=== PATIENT | female | born 1975 ===

== ENCOUNTER 2022-03-22 08:04 | Outpatient (REF) | payer OTHER, SELFPAY ==
[2022-03-22 09:56] LABS: MANUAL DIFF FLAG NO
[2022-03-22 10:39] LABS: Basophils Absolute Auto 0.1 X10*3/uL (0.0-0.2); Basophils Percent Auto 1.1 % (0-2); Eosinophils Absolute Auto 0.1 X10*3/uL (0.0-0.4); Eosinophils Percent Auto 1.8 % (0-4); Hematocrit 35.5 % (37.0-47.0); Hemoglobin 11.5 g/dl (12.0-16.0); Lymphocytes Absolute Auto 1.6 X10*3/uL (1.2-4.9); Lymphocytes Percent Auto 35.7 % (20-40); Mean Corpuscular HGB Conc 32.4 g/dl (31.0-35.0); Mean Corpuscular Hemoglobin 25.1 pg (27.0-33.0); Mean Corpuscular Volume 77.3 fL (80.0-98.0); Mean Platelet Volume 10.2 fL (9.4-12.3); Monocytes Absolute Auto 0.4 X10*3/uL (0.1-1.2); Monocytes Percent Auto 9.5 % (2-11); Neutrophils Absolute Auto 2.3 x10*3/uL (2.0-8.3); Neutrophils Percent Auto 51.9 % (45-73); Platelet Count 322 X10*3/uL (160-400); Red Blood Count 4.59 X10*6/uL (4.20-5.50); White Blood Count 4.4 X10*3/uL (4.8-10.8)
[2022-03-22 11:20] LABS: Alanine Aminotransferase 16 U/L (0-31); Albumin Level 4.6 g/dL (3.5-5.0); Alkaline Phosphatase 109 U/L (39-117); Anion Gap 13 (12-20); Aspartate Amino Transferase 21 U/L (5-31); Bilirubin Total 0.3 mg/dL (0.0-1.0); Blood Urea Nitrogen 17 mg/dL (9-16); Calcium 9.9 mg/dL (8.4-10.2); Carbon Dioxide 25 mmol/L (22-29); Chloride 109 mmol/L (96-108); Estimated Glomerular Filt Rate > 60; Ferritin 58 ng/mL (10-250); Glucose Random 101 mg/dL (60-115); Iron 48 mcg/dL (30-160); Percent Iron Saturation 16 % (15-50); Potassium 4.6 mmol/L (3.3-5.1); Rheumatoid Factor < 15.0 IU/mL (<15.0); Sodium 142 mmol/L (135-145); TSH reflex Free T4 0.78 uIU/mL (0.32-4.0); Total Iron Binding Capacity 306 mcg/dL (228-428); Total Protein 8.2 g/dL (6.5-8.0); Unsaturated Iron Binding 258 ug/dL
[2022-03-25 10:50] LABS: ANA Pattern 2 Nuclear Envelope; ANA Titer 2 1:40 titer; Anti Nuclear Antibody Screen POSITIVE (NEGATIVE)
== END 2022-03-22 08:05 | disposition home or self-care (01) ==
LOC: HO.LAB 08:04
PROVIDERS: PCP Nurse Practitioner Family; Visit Provider Nurse Practitioner Family
DX: R20.2 Paresthesia of skin (principal); R53.83 Other fatigue; D64.9 Anemia, unspecified; M54.50 Low back pain, unspecified; M54.2 Cervicalgia; I10 Essential (primary) hypertension
CPT/HCPCS: 36415; 80053; 82550; 82728; 83540; 84443; 85025; 86038; 86039; 86431; 99202

== ENCOUNTER 2022-04-14 09:02 | Outpatient (REF) | payer OTHER, SELFPAY ==
--- NOTE | ~2022-04-14 | MR_ITS ---
EXAMINATION: MR CERVICAL SPINE WITHOUT CONTRAST CLINICAL INFORMATION: 46-year-old with paresthesias of skin. Possible MS. COMPARISON: None TECHNIQUE: MRI of the cervical spine was obtained using routine sequences without contrast. Contrast was not administered, and there is motion artifact on the sagittal STIR images; the study is limited in this regard. FINDINGS: Alignment: Normal. No spondylolisthesis or retrolisthesis. Craniocervical Junction/C1-C2 Articulations: Intact and aligned. Visualized Intracranial Structures: Within normal limits. Vertebral Bodies: Normal height. Disc Spaces and Endplates: Moderate disc space height loss at C5-C6. No significant spondylosis. Endplates appear intact. Bone Marrow: No significant marrow-replacing process or bone marrow edema. C2-C3: Minimal central disc protrusion noted without canal stenosis. Mild facet arthrosis on the left noted with mild left-sided foraminal stenosis. C3-C4: Small central disc protrusion noted with mild indentation of the ventral thecal sac without cord impingement or canal stenosis. Mild right and moderate left-sided facet arthropathy noted with mild uncovertebral spurring, with udik-vs-yelxliet left-sided neural foraminal stenosis. C4-C5: No disc herniation or canal stenosis. Ffdo-vj-alvjmlgl left-sided facet arthropathy noted without significant neural foraminal stenosis. C5-C6: Shallow broad-based central disc protrusion measuring 1 mm with minimal encroachment on the ventral thecal sac without cord impingement or canal stenosis. Minor facet arthropathy noted bilaterally with mild uncinate process spurring, without significant neural foraminal stenosis. C6-C7: Mild ligamentum flavum thickening noted without disc herniation or canal stenosis. Uncovertebral spurring noted on the right with mild facet spurring and mild right-sided neural foraminal stenosis. C7-T1: No disc herniation or canal stenosis. Mild facet arthropathy noted bilaterally without significant neural foraminal stenosis. T1-T2: No disc herniation or canal stenosis. Minor facet arthrosis noted bilaterally without significant neural foraminal stenosis. Spinal Cord: The cervical and visualized upper thoracic spinal cord is normal in morphology, caliber and signal intensity throughout. No spinal cord lesions are identified, and there is no evidence for syrinx or edema. Extracranial Soft Tissues: Grossly within normal limits within the limitations of the study. MR/MR cervical spine wo con IMPRESSION: 1. No spinal cord lesions are seen. There is no evidence for demyelinating disease within the limitations of a noncontrast study. 2. Discogenic degenerative changes at C5-C6. Multilevel mild central disc protrusions without cord impingement or canal stenosis, as detailed by level above. 3. Multilevel DJD, as discussed above, with seeg-wh-lxeowaob left-sided neural foraminal stenosis at C3-C4, mild left-sided neural foraminal stenosis at C2-C3 and mild right-sided neural foraminal stenosis at C6-C7.
== END 2022-04-14 09:03 | disposition home or self-care (01) ==
LOC: HO.MRI 09:02
PROVIDERS: Visit Provider Nurse Practitioner Family
DX: R20.2 Paresthesia of skin (principal); M54.2 Cervicalgia
CPT/HCPCS: 72141

== ENCOUNTER → 2022-05-31 09:52 | Outpatient (BNVA) | payer OTHER, SELFPAY | PROVIDERS: PCP Nurse Practitioner Family; Visit Provider Nurse Practitioner Family | DX: R20.2 Paresthesia of skin (principal); R76.8 Other specified abnormal immunological findings in serum; R53.83 Other fatigue | CPT/HCPCS: 99212 ==

== ENCOUNTER 2022-08-25 16:19 | Outpatient (REF) | payer OTHER, SELFPAY ==
[2022-08-25 16:57] LABS: MANUAL DIFF FLAG NO
[2022-08-25 17:05] LABS: Basophils Absolute Auto 0.1 X10*3/uL (0.0-0.2); Basophils Percent Auto 1.2 % (0-2); Eosinophils Absolute Auto 0.1 X10*3/uL (0.0-0.4); Eosinophils Percent Auto 1.7 % (0-4); Hematocrit 35.1 % (37.0-47.0); Hemoglobin 11.5 g/dl (12.0-16.0); Imm Gran Abs Auto 0.01 X10*3/uL (0.00-0.03); Imm Gran Pct Auto 0.2 % (0.0-0.4); Lymphocytes Absolute Auto 1.9 X10*3/uL (1.2-4.9); Lymphocytes Percent Auto 37.3 % (20-40); Mean Corpuscular HGB Conc 32.8 g/dl (31.0-35.0); Mean Corpuscular Hemoglobin 25.1 pg (27.0-33.0); Mean Corpuscular Volume 76.5 fL (80.0-98.0); Mean Platelet Volume 9.9 fL (9.4-12.3); Monocytes Absolute Auto 0.5 X10*3/uL (0.1-1.2); Monocytes Percent Auto 8.9 % (2-11); Neutrophils Absolute Auto 2.6 x10*3/uL (2.0-8.3); Neutrophils Percent Auto 50.7 % (45-73); Platelet Count 335 X10*3/uL (160-400); Red Blood Count 4.59 X10*6/uL (4.20-5.50); White Blood Count 5.2 X10*3/uL (4.8-10.8)
[2022-08-25 17:32] LABS: Appearance Urine Clear; Color Urine Yellow; Glucose Urine UA Negative (Negative); Leukocyte Esterase Urine Negative (Negative); Nitrite Urine Negative (Negative); Urine Blood Negative (Negative); Urine Ketones Negative (Negative); Urine Protein Negative (Neg-Trace)
[2022-08-25 17:34] LABS: Bacteria Urine None Seen (None Seen); Hyaline Casts Urine 0-2 /LPF (0-2); RBC Urine 0-2 /HPF (0-2); Squamous Epithelial Cell Urine 0-2 /HPF (0-2); WBC Urine 0-5 /HPF (0-5)
[2022-08-25 17:41] LABS: Alanine Aminotransferase 24 U/L (0-31); Alkaline Phosphatase 112 U/L (39-117); Anion Gap 15 (12-20); Aspartate Amino Transferase 29 U/L (5-31); Bilirubin Total 0.4 mg/dL (0.0-1.0); Blood Urea Nitrogen 10 mg/dL (9-16); C Reactive Protein 0.48 mg/dL (< or = 0.50); Calcium 9.6 mg/dL (8.4-10.2); Carbon Dioxide 26 mmol/L (22-29); Chloride 102 mmol/L (96-108); Estimated Glomerular Filt Rate > 60; Glucose Random 83 mg/dL (60-115); Lactate Dehydrogenase 263 U/L (122-220); Potassium 3.6 mmol/L (3.3-5.1); Rheumatoid Factor < 15.0 IU/mL (<15.0); Sodium 139 mmol/L (135-145); Total Protein 8.6 g/dL (6.5-8.0)
[2022-08-25 17:50] LABS: Creatinine Urine 35.89 mg/dL; Total Protein Urine Random < 7 mg/dL (<12)
[2022-08-25 18:03] LABS: Erythrocyte Sedimentation Rate 20 MM/HR (0-20); TSH reflex Free T4 1.86 uIU/mL (0.32-4.0)
[2022-08-26 11:36] LABS: Complement C3 125 mg/dL (83-193)
[2022-08-27 06:12] LABS: Thyroid Peroxidase Antibodies 2 IU/mL (<9)
[2022-08-27 23:33] LABS: Prot Elec - Albumin 4.6 g/dL (3.8-4.8); Prot Elec - Alpha1 0.3 g/dL (0.2-0.3); Prot Elec - Alpha2 0.8 g/dL (0.5-0.9); Prot Elec - Beta 1 0.4 g/dL (0.4-0.6); Prot Elec - Beta 2 0.4 g/dL (0.2-0.5); Prot Elec - Gamma 1.5 g/dL (0.8-1.7)
[2022-08-29 13:03] LABS: Thyroglobulin Antibodies <1 IU/mL (< or = 1)
[2022-08-29 14:23] LABS: Cardiolipin IgG Ab <2.0 GPL-U/mL; Cardiolipin IgM Ab <2.0 MPL-U/mL
[2022-08-29 15:21] LABS: Anti DNA DS Antibody 5 IU/mL; Antibody to SS-A Antigen <1.0 NEG AI (<1.0 NEG); Antibody to SS-B Antigen <1.0 NEG AI (<1.0 NEG); SM/Ribonucleoprotein Ab <1.0 NEG AI (<1.0 NEG); Smith Protein <1.0 NEG AI (<1.0 NEG)
[2022-08-30 08:07] LABS: IgA 99 mg/dL (47-310); IgG 1805 mg/dL (600-1640); IgM 40 mg/dL (50-300)
[2022-08-30 12:52] LABS: Mitochondrial Antibodies NEGATIVE (NEGATIVE)
[2022-08-30 13:27] LABS: Smooth Muscle Antibody <20 U (<20)
[2022-08-30 15:46] LABS: Aldolase 5.3 U/L (<=8.1)
[2022-08-31 13:16] LABS: Anti Nuclear Antibody Screen POSITIVE (NEGATIVE); Beta-2 Glycoprotein IgA <2.0 U/mL (<20.0); Beta-2 Glycoprotein IgG <2.0 U/mL (<20.0); Beta-2 Glycoprotein IgM <2.0 U/mL (<20.0)
[2022-08-31 13:46] LABS: Liver Kidney Microsomal Ab <=20.0 U (<=20.0); PTT (LAC) Screen 35 sec (<=40)
[2022-09-02 18:56] LABS: EJ Autoantibodies NOT DETECTED (NOT DETECTED); JO-1 Antibody <1.0 NEG AI; MI 2 Autoantibodies NOT DETECTED (NOT DETECTED); OJ Autoantibodies NOT DETECTED (NOT DETECTED); PL 12 Autoantibodies NOT DETECTED (NOT DETECTED); PL 7 Autoantibodies NOT DETECTED (NOT DETECTED)
== END 2022-08-25 16:20 | disposition home or self-care (01) ==
LOC: HO.LAB 16:19
PROVIDERS: Visit Provider Student in an Organized Health Care Education/Training Program
DX: R76.8 Other specified abnormal immunological findings in serum (principal); G72.9 Myopathy, unspecified; M17.0 Bilateral primary osteoarthritis of knee; R20.2 Paresthesia of skin
CPT/HCPCS: 36415; 80053; 81001; 82085; 82550; 82784; 83615; 84156; 84165; 84443; 85025; 85597; 85613; 85652; 85730; 86015; 86038; 86039; 86140; 86146; 86147; 86160; 86225; 86235; 86255; 86256; 86334; 86376; 86431; 86800; 99202

== ENCOUNTER → 2022-09-02 14:56 | Outpatient (BNVA) | payer OTHER, SELFPAY | PROVIDERS: PCP Nurse Practitioner Family; Visit Provider Nurse Practitioner Family | DX: R20.2 Paresthesia of skin (principal); M54.2 Cervicalgia | CPT/HCPCS: 99212 ==

== ENCOUNTER → 2022-10-05 14:53 | Outpatient (BNVA) | payer OTHER, SELFPAY | PROVIDERS: PCP Nurse Practitioner Family; Referring Provider Nurse Practitioner Family; Visit Provider Student in an Organized Health Care Education/Training Program | DX: R20.2 Paresthesia of skin (principal) | CPT/HCPCS: 99212 ==

== ENCOUNTER 2024-03-05 15:36 | Outpatient (AMB) | payer OTHER, SELFPAY ==
--- OUTSIDE RECORDS SUMMARY | 2024-03-05 15:37 | XMS_ITS | Continuity of Care Document ---
Author Organization [facility] Address [address] [place] [address]- Care Team Providers Care Rn Manager Name Role Phone Mary ALANIS, Jessica Trevino Primary Care Physicia n Unavailable Encounter [facility] Date(s): 05/08/23 - 06/07/[address] [address]- Attending Physician: Admtr, Ar8 Admitting Physician: Admtr, Ar8 Referring Physician: Admtr, Ar8 Patient Care team information Care Team Personnel Name: Jessica Hernandez NP Position: [facility] Outreach Member Role: PCP Address: Address: [address] [place] [id number]- Care Team Related Persons Name: SERA HATCH Address: home [address] [place] [address]
--- OUTSIDE RECORDS SUMMARY | 2024-03-05 15:37 | XMS_ITS | Continuity of Care Document ---
Author Organization [facility] ter Address [address] [place] [address]- Care Team Providers Care Quantitative Software Engineer Name Role Phone Syeda Rodriguez DO Primary Care Physician Encounter [facility] Date(s): 11/29/23 - 11/29/23 [facility] [address] [place] [id number] Attending Physician: Not on Staff, Attending MD Allergies, Adverse Reactions, Alerts No Known Medication Allergies Immunizations Given and Recorded Vaccine Date Status Refusal Reason SARS-CoV-2 (COVID-19) mRNA-1273 vaccine 08/25/21 R ecorded SARS-CoV-2 (COVID-19) mRNA-1273 vaccine 07/26/21 R ecorded tetanus/diphtheria/pertussis, acel(Tdap) 04/20/21 Recorded influenza virus vaccine, inactivated 08/04/20 Ezekiel rded influenza virus vaccine, inactivated 12/04/19 Ezekiel rded influenza virus vaccine, inactivated 07/20/18 Ezekiel rded influenza virus vaccine, inactivated 07/24/17 Ezekiel rded tetanus-diphtheria toxoids (Td) 04/15/19 Recorded tetanus-diphtheria toxoids (Td) 06/20/02 Recorded hepatitis B adult vaccine 07/22/02 Recorded hepatitis B adult vaccine 06/20/02 Recorded Medications amLODIPine 10 mg oral tablet 10 mg, 1, tablet, By Mouth, Daily, # 90 tablet, Refills 1, Tot. Refills 1, Maintenance, 11/27/23 16:22:00 EST, Route to Pharmacy Electronically, [facility]/pharmacy #[id number], Partial fill upon patient request if the prescription is for a schedule II opioid drug... Start Date: 11/27/23 Status: Ordered multivitamin Multiple Vitamins oral tablet 1 tablet, By Mouth, Daily, # 30 tablet, 0 Refills, Maintenance, 11/27/23 16:23:00 EST, Tablet, Partial fill upon patient request if the prescription is for a schedule II opioid drug. Start Date: 11/27/23 Status: Ordered Problem List Condition Confirmation Course Effective Dates Status Health St atus Informant Hypertension Confirmed Active Iron deficiency anemia Confirmed Active Sickle cell trait Confirmed Active Social History Social History Type Response Smoking Status Former smoker, quit more than 30 days ago; Other: quit many years ago; entered on: 11/27/23 Sex Patient Care team information Care Team Personnel Name: Syeda Rodriguez DO Position: [facility] Resident Member Role: PCP Address: Address: [address] [place] [address]- Care Team Related Persons Name: SERA HATCH Address: home [address] [place] [address]
--- OUTSIDE RECORDS SUMMARY | 2024-03-05 15:37 | XMS_ITS | Continuity of Care Document ---
Author Organization [facility] Address [address] [place] [address]- Care Team Providers Care Industrial Plant Custodian Name Role Phone Mary ALANIS, Jessica Trevino Primary Care Physicia n Unavailable Encounter [facility] Date(s): 08/16/21 - 10/27/[address] [address]- Discharge Disposition: A-D/C Home Attending Physician: Jessica Hernandez NP Admitting Physician: Jessica Hernandez NP Referring Physician: Jessica Hernandez NP
--- OUTSIDE RECORDS SUMMARY | 2024-03-05 15:37 | XMS_ITS | Continuity of Care Document ---
Author Organization [facility] Address [address] [place] [address]- Care Team Providers Care Natural Gas Field Processing Supervisor Name Role Phone Mary ALANIS, Jessica Trevino Primary Care Physicia n Unavailable Encounter [facility] Date(s): 08/27/21 - 09/26/[address] [address]- Attending Physician: Hugo Ulrich Admitting Physician: Hugo Ulrich Referring Physician: Hugo Ulrich
--- OUTSIDE RECORDS SUMMARY | 2024-03-05 15:37 | XMS_ITS | Continuity of Care Document ---
Author Organization [facility] Address [address] [place] [address]- Care Team Providers Care Real Estate Agency Principal Name Role Phone Syeda Rodriguez DO Primary Care Physician Encounter [facility] Date(s): 01/29/24 - 02/28/[address] [address]- Attending Physician: Hugo Ulrich Admitting Physician: AdmHugo roger Referring Physician: AdmtrHugo Allergies, Adverse Reactions, Alerts No Known Medication [...] 11/27/23 16:22:00 EST, Route to Pharmacy Electronically, [facility] #[id number], Partial fill upon patient request if [...] Team Personnel Name: Syeda Rodriguez DO Position: S Resident Member Role: PCP Address: Address: [address] [place] [address]- Care Team Related Persons Name: SERA HATCH Address: home [address] [place] [address]
--- OUTSIDE RECORDS SUMMARY | 2024-03-05 15:37 | XMS_ITS | Continuity of Care Document ---
Author Organization [facility] Address [address] [place] [address]- Care Team Providers Care Grape Grower Name Role Phone Rodriguez Syeda MCCABE Primary Care Physician [place] [id number] Date(s): 11/27/23 - 12/27/[address] [address] Attending Physician: Hugo Ulrich Admitting Physician: Hugo Ulrich Referring Physician: AdmtrHugo Allergies, Adverse Reactions, Alerts [...] 11/27/23 16:22:00 EST, Route to Pharmacy Electronically, [facility]/pharmacy #[id number], Partial fill upon patient request [...] S Resident Member Role: PCP Address: Address: [address] [place] [address]- Care Team Related Persons Name: SERA HATCH Address: home [address] [place] [address]
--- OUTSIDE RECORDS SUMMARY | 2024-03-05 15:37 | XMS_ITS | Continuity of Care Document ---
Author Organization [facility] Address [address] [place] [address]- Care Team Providers Care Auto Parts Clerk Name Role Phone RodriguezSyeda castro DO Primary Care Physician [phone] Encounter [facility] Date(s): 12/01/23 - 12/31/[address] [address]- Allergies, Adverse Reactions, Alerts No Known Medication [...] 11/27/23 16:22:00 EST, Route to Pharmacy Electronically, [facility]/pharmacy #[id number], Partial fill upon patient [...] Team Personnel Name: Syeda Rodriguez DO Position: [facility] Resident Member Role: PCP Address: Address: [address] [place] [address]- Care Team Related Persons Name: SERA HATCH Address: home [address] [place] [address]
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
[2024-03-05 15:39] VITALS: BP 130/64; PULSE 68; O2SAT 99; BMI 23.9
== END 2024-03-05 16:04 | disposition home or self-care (01) ==
LOC: HO.RHE 15:36
PROVIDERS: PCP Nurse Practitioner Family; Visit Provider Student in an Organized Health Care Education/Training Program
DX: R20.2 Paresthesia of skin (principal)
CPT/HCPCS: 99214

== ENCOUNTER → 2024-03-05 15:36 | Outpatient (BNVA) | payer OTHER, SELFPAY | PROVIDERS: PCP Nurse Practitioner Family; Visit Provider Student in an Organized Health Care Education/Training Program | DX: R20.2 Paresthesia of skin (principal) | CPT/HCPCS: 99212 ==

== ENCOUNTER 2024-04-10 14:43 | Outpatient (REF) | payer OTHER, SELFPAY ==
[2024-04-10 15:07] LABS: MANUAL DIFF FLAG NO
[2024-04-10 15:23] LABS: Basophils Absolute Auto 0.1 X10*3/uL (0.0-0.2); Basophils Percent Auto 1.1 % (0-2); Eosinophils Absolute Auto 0.1 X10*3/uL (0.0-0.4); Eosinophils Percent Auto 1.1 % (0-4); Hematocrit 33.3 % (37.0-47.0); Imm Gran Abs Auto 0.01 X10*3/uL (0.00-0.03); Imm Gran Pct Auto 0.2 % (0.0-0.4); Lymphocytes Absolute Auto 1.5 X10*3/uL (1.2-4.9); Lymphocytes Percent Auto 33.8 % (20-40); Mean Corpuscular Hemoglobin 25.6 pg (27.0-33.0); Mean Corpuscular Volume 77.6 fL (80.0-98.0); Mean Platelet Volume 9.5 fL (9.4-12.3); Monocytes Absolute Auto 0.5 X10*3/uL (0.1-1.2); Monocytes Percent Auto 10.5 % (2-11); Neutrophils Absolute Auto 2.4 x10*3/uL (2.0-8.3); Neutrophils Percent Auto 53.3 % (45-73); Platelet Count 344 X10*3/uL (160-400); Red Blood Count 4.29 X10*6/uL (4.20-5.50); Red Cell Distribution Width 13.9 % (11.0-16.0); White Blood Count 4.6 X10*3/uL (4.8-10.8)
[2024-04-10 15:58] LABS: Alanine Aminotransferase 18 U/L (0-31); Albumin Level 4.6 g/dL (3.5-5.0); Alkaline Phosphatase 94 U/L (39-117); Anion Gap 11 (12-20); Aspartate Amino Transferase 24 U/L (5-31); Bilirubin Total 0.3 mg/dL (0.0-1.0); Blood Urea Nitrogen 23 mg/dL (9-16); C Reactive Protein 0.23 mg/dL (< or = 0.50); Calcium 9.5 mg/dL (8.4-10.2); Carbon Dioxide 28 mmol/L (22-29); Chloride 105 mmol/L (96-108); Estimated Glomerular Filt Rate 55; Gamma Glutamyl Transpeptidase 35 U/L (7-33); Glucose Random 86 mg/dL (60-115); Lactate Dehydrogenase 220 U/L (122-220); Potassium 4.3 mmol/L (3.3-5.1); Sodium 140 mmol/L (135-145); Total Protein 7.9 g/dL (6.5-8.0)
[2024-04-10 16:01] LABS: Erythrocyte Sedimentation Rate 11 MM/HR (0-20)
[2024-04-12 14:24] LABS: Transglutaminase Ab IgG <1.0 U/mL
[2024-04-12 15:08] LABS: IgA 80 mg/dL (47-310); IgG 1624 mg/dL (600-1640); IgM 50 mg/dL (50-300)
[2024-04-12 21:02] LABS: Prot Elec - Albumin 4.3 g/dL (3.8-4.8); Prot Elec - Alpha1 0.3 g/dL (0.2-0.3); Prot Elec - Alpha2 0.7 g/dL (0.5-0.9); Prot Elec - Beta 1 0.4 g/dL (0.4-0.6); Prot Elec - Beta 2 0.3 g/dL (0.2-0.5); Prot Elec - Gamma 1.4 g/dL (0.8-1.7); Prot Elec - Total Protein 7.4 g/dL (6.1-8.1)
[2024-04-14 23:08] LABS: Endomysial IgA Antibody Negative (Negative)
[2024-04-17 14:57] LABS: Aldolase 4.5 U/L (<=8.1)
[2024-04-22 16:47] LABS: Cytosolic 5'nuc 1A Ab IgG <5 Units; Ej Ab <11 SI (<11); HMGCR Ab IgG <2 CU (<20); Jo-1 Ab <11 SI (<11); MDA5 Ab 11 SI (<11); Mi-2 alpha Ab <11 SI (<11); Mi-2 beta Ab <11 SI (<11); NXP-2 (MJ) Ab <11 SI (<11); Oj Ab <11 SI (<11); Pl-12 Ab <11 SI (<11); Pl-7 Ab <11 SI (<11); SRP Ab <11 SI (<11); TIF1 gamma Ab <11 SI (<11)
== END 2024-04-10 14:44 | disposition home or self-care (01) ==
LOC: HO.LAB 14:43
PROVIDERS: Visit Provider Student in an Organized Health Care Education/Training Program
DX: K90.0 Celiac disease (principal); G72.9 Myopathy, unspecified
CPT/HCPCS: 36415; 80053; 82085; 82550; 82784; 82977; 83516; 83520; 83615; 84165; 84182; 85025; 85652; 86140; 86231; 86235; 86334; 86364

== ENCOUNTER 2024-04-26 14:48 | Outpatient (AMB) | payer OTHER, SELFPAY ==
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
== END 2024-04-26 15:55 | disposition home or self-care (01) ==
PROVIDERS: PCP Nurse Practitioner Family; Visit Provider Student in an Organized Health Care Education/Training Program
DX: R20.2 Paresthesia of skin (principal)
CPT/HCPCS: 99214

== ENCOUNTER → 2024-04-26 14:48 | Outpatient (BNVA) | payer OTHER, SELFPAY | PROVIDERS: PCP Nurse Practitioner Family; Visit Provider Student in an Organized Health Care Education/Training Program | DX: R20.2 Paresthesia of skin (principal) | CPT/HCPCS: 99212 ==